=== PATIENT | female | born 1960 | race Caucasian/White ===

== ENCOUNTER 2016-11-14 07:00 | Outpatient (RCR) | payer OTHER | END 2016-12-24 08:24 | LOC: WSPT | DX: M25.512 Pain in left shoulder (principal) ==

== ENCOUNTER 2017-08-28 06:50 | Outpatient (RCR) | payer OTHER | END 2017-08-28 07:09 | disposition home or self-care (01) | LOC: WSC 06:50 → WSPT 07:00 → WSC 07:09 | DX: Z01.818 Encounter for other preprocedural examination (principal) ==

== ENCOUNTER 2017-12-02 16:45 | Outpatient (RCR) | payer OTHER | END 2017-12-03 | disposition home or self-care (01) | LOC: WSPT | DX: M75.122 Complete rotator cuff tear or rupture of left shoulder, not specified as traumatic (principal); S43.432D Superior glenoid labrum lesion of left shoulder, subsequent encounter ==

== ENCOUNTER 2018-02-24 16:45 | Outpatient (RCR) | payer OTHER | END 2018-03-04 | disposition home or self-care (01) | LOC: WSPT | DX: Z47.89 Encounter for other orthopedic aftercare (principal) ==

== ENCOUNTER 2018-03-17 16:45 | Outpatient (RCR) | payer OTHER | END 2018-06-03 | disposition home or self-care (01) | LOC: WSC | DX: Z47.89 Encounter for other orthopedic aftercare (principal) ==

== ENCOUNTER 2019-02-03 08:30 | Outpatient (RCR) | payer OTHER | END 2019-04-26 | disposition home or self-care (01) | LOC: WSPT | DX: M53.3 Sacrococcygeal disorders, not elsewhere classified (principal) ==

== ENCOUNTER 2021-06-15 07:30 | Outpatient (RCR) | payer BC | END 2021-06-17 | disposition still patient (30) | LOC: PT.GENESIS | DX: M54.50 Low back pain, unspecified (principal) ==

== ENCOUNTER 2021-07-06 11:15 | Outpatient (RCR) | payer BC | END 2021-07-18 | disposition home or self-care (01) | LOC: PT.GENESIS | DX: M54.50 Low back pain, unspecified (principal) ==

== ENCOUNTER → 2021-10-13 | Outpatient (CLI) | payer BC | LOC: MC.RAD 06:57 | DX: Z12.31 Encounter for screening mammogram for malignant neoplasm of breast (principal) ==

== ENCOUNTER → 2021-10-20 | Outpatient (CLI) | payer BC | LOC: MC.RAD 10:49 | DX: R92.8 Other abnormal and inconclusive findings on diagnostic imaging of breast (principal) ==

== ENCOUNTER → 2021-11-01 | Outpatient (CLI) | payer BC | LOC: MC.RAD 06:52 | DX: N63.20 Unspecified lump in the left breast, unspecified quadrant (principal) ==

== ENCOUNTER → 2023-05-06 | Outpatient (CLI) | payer BC | LOC: MC.RAD 07:54 | DX: N64.89 Other specified disorders of breast (principal) ==

== ENCOUNTER → 2023-10-17 | Outpatient (CLI) | payer BC | LOC: MC.RAD 06:58 | DX: Z12.31 Encounter for screening mammogram for malignant neoplasm of breast (principal) ==